=== PATIENT | female | born 1950 | race Caucasian/White ===

== ENCOUNTER → 2020-03-26 12:15 | Outpatient (BNVA) | payer MEDICARE, SELFPAY | PROVIDERS: Visit Provider Nurse Practitioner Family | DX: R68.89 Other general symptoms and signs (principal); R05 Cough; R06.02 Shortness of breath | CPT/HCPCS: 87400 ==

== ENCOUNTER → 2020-03-27 11:12 | Outpatient (BNVA) | payer MEDICARE, SELFPAY | PROVIDERS: Visit Provider Nurse Practitioner Family | DX: R68.89 Other general symptoms and signs (principal); R05 Cough; R06.02 Shortness of breath | CPT/HCPCS: 87635 ==

== ENCOUNTER 2020-07-28 12:35 | Outpatient (CLI) | payer OTHER, SELFPAY ==
--- NOTE | 2020-07-28 13:00 | CT_ITS ---
WS: [id number] CT scan of the head, 07/28/2020 Clinical Data: closed head injury Comparison: None. DLP: 925.[address] scans at [facility] use at least one of these dose optimization techniques: automat ed exposure control; mA and/or kV adjustment per patient size (includes targeted exams where dose is matched to clinical indication); or iterative reconstruction. Findings: The ventricular system is normal without shift. No recent infarct or hemorrhage is seen. There are no abnormal intracerebral masses. The cerebellum and brainstem are not remarkable. Bony windows of the skull and skull base show no fractures or erosions. The mastoid air cells, internet salesperson al auditory canals, sella turcica, intraorbital contents, and paranasal sinuses are unremarkable. CT/CT head wo con* [id number] Impression: Negative CT scan of the head
--- NOTE | 2020-07-28 15:00 | CT_ITS ---
WS: [id number] CT cervical spine. Additional two-dimensional coronal and sagittal reconstruction was performed. 07/28 Clinical Data: truama and closed head injury, neck pain Comparison: None. DLP: 1398.[address] scans at [facility] use at least one of these dose optimization techniques: automat ed exposure control; mA and/or kV adjustment per patient size (includes targeted exams where dose is matched to clinical indication); or iterative reconstruction. Findings: No compression fractures are seen. The disc heights are normal. The spinous processes are in good ali gnment. The odontoid is unremarkable. There is osteoarthritic spurring at C4, C5, C6 and C7. There is posterior spurring at C5-C6 and C6-C7 with disc space narrowing at these levels. There is no prevert ebral soft tissue swelling. The soft tissues of the cervical spine and the lung apices are not remark able. C2-C3: No disc bulge, canal stenosis or foraminal stenosis is seen. C3-C4: No disc bulge, canal stenosis or foraminal stenosis is seen. C4-C5: No disc bulge, canal stenosis or foraminal stenosis is seen. Facet joint arthritis is present. C5-C6: There is a disc osteophyte complex which causes mild canal stenosis. Mild bilateral foraminal stenosis is noted. C6-C7: There is a disc osteophyte complex causing mild canal stenosis. There is also mild bilateral f oraminal stenosis. C7-T1: No disc bulge, canal stenosis or foraminal stenosis is seen. CT/CT cervical spin wo con* [id number] Impression: 1. Negative for cervical spine fracture. 2. 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 3. Mild canal stenosis at C5-C6 and C6-C7.
== END 2020-07-28 12:36 | disposition home or self-care (01) ==
PROVIDERS: PCP Emergency Medicine; Visit Provider Emergency Medicine
DX: S09.90XA Unspecified injury of head, initial encounter (principal); X58.XXXA Exposure to other specified factors, initial encounter; M50.323 Other cervical disc degeneration at C6-C7 level; M48.02 Spinal stenosis, cervical region
CPT/HCPCS: 70450; 72125

== ENCOUNTER → 2021-12-10 14:20 | Outpatient (BNVA) | payer MEDICARE, SELFPAY | PROVIDERS: PCP Emergency Medicine; Visit Provider Nurse Practitioner Family | DX: Z20.822 Contact with and (suspected) exposure to COVID-19 (principal); R68.89 Other general symptoms and signs | CPT/HCPCS: 87400; 87635 ==